=== PATIENT | male | born 1940 ===

== ENCOUNTER 2024-07-12 21:14 | Observation (INO) | payer MEDICARE, OTHER ==
[2024-07-12] MEDS: Sodium Chloride 0.9% 1,000 ML IV ONE (21:21)
[2024-07-12] MEDS ORDERED: Sodium Chloride 0.9% 10 ML Syringe FLUSH PRN (21:32)
[2024-07-12 21:46] LABS: BASOPHILS PERCENT AUTO 0.1 % (0.0-1.0); EOSINOPHILS PERCENT AUTO 0.1 % (1.0-3.0); LYMPHOCYTES PERCENT AUTO 35.5 % (20.5-50.1); MEAN CORPUSCULAR HEMOGLOBIN 30.5 pg (27.0-34.0); MEAN CORPUSCULAR HGB CONC 32.6 g/dL (33.0-35.0); MEAN CORPUSCULAR VOLUME 93.7 fL (80-100); MONOCYTES PERCENT AUTO 4.7 % (2-8); NEUTROPHILS PERCENT AUTO 59.6 % (42.2-75.2); PLATELET COUNT,PLT 137 10^3/uL (150-450); RED BLOOD CELL COUNT 4.59 10^6/uL (4.6-6.2); WHITE BLOOD CELL COUNT,WBC 10.4 10^3/uL (5.0-10.0)
[2024-07-12 21:53] LABS: C-REACTIVE PROTEIN 3.1 ng/dL (<=0.50); MAGNESIUM 1.8 mg/dL (1.8-2.4)
[2024-07-12 21:59] LABS: LACTIC ACID 1.2 mmol/L (0.4-2.0)
[2024-07-12 22:06] LABS: A/G RATIO 1.1; ALBUMIN 3.5 g/dL (3.4-5.0); ANION GAP 11.9 mEq/L (7-13); BILIRUBIN TOTAL 1.6 mg/dL (0.2-1.0); BUN/CREATININE RATIO 20.8 (No establ ref range); CREATININE 1.3 mg/dL (0.70-1.30); EST CRCL DRUG DOSING (CG) 49.72 mL/min; POTASSIUM,K 3.9 mmol/L (3.5-5.1); PROTEIN TOTAL,TP 6.7 g/dL (6.4-8.2)
[2024-07-12 22:21] LABS: PROTHROMBIN TIME 10.9 SEC (9.0-12.0); PTT,PARTIAL THROMBOPLSTIN TIME 24.5 SEC (22.0-34.0)
[2024-07-12 22:23] LABS: APPEARANCE,URINE CLEAR (CLEAR); BILIRUBIN,URINE NEGATIVE (NEGATIVE); COLOR,URINE YELLOW (YELLOW); GLUCOSE,URINE NEGATIVE (NEGATIVE); KETONES,URINE TRACE (NEGATIVE); LEUKOCYTE ESTERASE,URINE NEGATIVE (NEGATIVE); NITRITE,URINE NEGATIVE (NEGATIVE); OCCULT BLOOD,URINE MODERATE (NEGATIVE); PH,URINE 5.5 (5.0-9.0); PROTEIN,URINE 30 (NEGATIVE); UROBILINOGEN,URINE 0.2 mg/dL (0.2-1.0)
[2024-07-12 22:31] LABS: BACTERIA,URINE FEW /HPF (0-FEW/HPF); EPITHELIAL CELLS,URINE FEW /HPF (NOT SEEN); MUCUS,URINE MANY /LPF (NOT SEEN); WBC,URINE 0-5 /HPF (0-5/HPF)
[2024-07-12] MEDS: Albuterol/Ipratropium 3.0-0.5 MG/3 ML Neb Soln NEB ONE (23:27)
[2024-07-13] MEDS: cefTRIAXone 1 GM Vial IVPUSH ONE (00:13)
[2024-07-13] MEDS: methylPREDNISolone Sodium Succinate 40 MG/1 ML SDV IVPUSH ONE (00:13)
[2024-07-13] MEDS: Azithromycin 500 MG in Sodium Chloride 0.9% 250 ML IV ONE (00:14)
[2024-07-13] MEDS: Iopamidol 755 Mg/ML 100 ML Bottle IVPUSH ONE (10:43)
[2024-07-13] MEDS ORDERED: Albuterol 0.083% 2.5 MG/3 ML Neb Soln NEB PRN (15:17)
[2024-07-13] MEDS ORDERED: Acetaminophen 325 MG Tab PO PRN (15:17)
[2024-07-13] MEDS ORDERED: Fluticasone NASAL Spray 16 GM Bottle NAS PRN (15:22)
[2024-07-13] MEDS: Aspirin 81 MG Tab.EC PO SCH (15:53)
[2024-07-13] MEDS: Tamsulosin 0.4 MG Cap.ER PO SCH (15:53)
[2024-07-13] MEDS: Losartan 50 MG Tab PO SCH (15:53)
[2024-07-13] MEDS: Pravastatin 20 MG Tab PO SCH (15:53)
[2024-07-13] MEDS: Finasteride 5 MG Tab PO SCH (15:54)
[2024-07-13] MEDS: Metoprolol Tartrate 50 MG Tab PO SCH (20:42)
[2024-07-13] MEDS: Heparin Sodium 5,000 Units/ML Vial SUBCUT SCH (21:39)
[2024-07-14 06:22] LABS: BASOPHILS PERCENT AUTO 0.1 % (0.0-1.0); EOSINOPHILS PERCENT AUTO 0.1 % (1.0-3.0); HEMATOCRIT 42.7 % (40.0-54.0); HEMOGLOBIN 13.5 g/dL (14.0-18.0); LYMPHOCYTES PERCENT AUTO 46.1 % (20.5-50.1); MEAN CORPUSCULAR HGB CONC 31.6 g/dL (33.0-35.0); MEAN CORPUSCULAR VOLUME 94.9 fL (80-100); MONOCYTES PERCENT AUTO 5.8 % (2-8); NEUTROPHILS PERCENT AUTO 47.9 % (42.2-75.2); PLATELET COUNT,PLT 147 10^3/uL (150-450); WHITE BLOOD CELL COUNT,WBC 18.9 10^3/uL (5.0-10.0)
[2024-07-14 06:36] LABS: ANION GAP 8.6 mEq/L (7-13); CALCIUM 9.3 mg/dL (8.5-10.1); EST CRCL DRUG DOSING (CG) 65.08 mL/min; POTASSIUM,K 4.6 mmol/L (3.5-5.1)
[2024-07-14] MEDS: Loratadine 10 MG Tab PO SCH (09:42)
[2024-07-14] MEDS: cefTRIAXone 2 GM Vial IVPUSH SCH (13:52)
[2024-07-14] MEDS: Azithromycin 500 MG in Sodium Chloride 0.9% 250 ML IV SCH (13:53)
[2024-07-15 06:35] LABS: BASOPHILS PERCENT AUTO 0.1 % (0.0-1.0); EOSINOPHILS PERCENT AUTO 0.4 % (1.0-3.0); HEMATOCRIT 42.9 % (40.0-54.0); HEMOGLOBIN 13.4 g/dL (14.0-18.0); LYMPHOCYTES PERCENT AUTO 50.8 % (20.5-50.1); MEAN CORPUSCULAR HEMOGLOBIN 29.8 pg (27.0-34.0); MEAN CORPUSCULAR HGB CONC 31.2 g/dL (33.0-35.0); MEAN CORPUSCULAR VOLUME 95.5 fL (80-100); MONOCYTES PERCENT AUTO 5.1 % (2-8); NEUTROPHILS PERCENT AUTO 43.6 % (42.2-75.2); PLATELET COUNT,PLT 153 10^3/uL (150-450); RED BLOOD CELL COUNT 4.49 10^6/uL (4.6-6.2); WHITE BLOOD CELL COUNT,WBC 13.4 10^3/uL (5.0-10.0)
== END 2024-07-15 10:50 | disposition home or self-care (01) ==
LOC: DL.ED 21:14 → DL.MS 07-13 13:19
PROVIDERS: ADMIT Internal Medicine; ATTEND Internal Medicine
DX: J15.8 Pneumonia due to other specified bacteria (principal); J96.01 Acute respiratory failure with hypoxia; J44.9 Chronic obstructive pulmonary disease, unspecified; I10 Essential (primary) hypertension; E78.00 Pure hypercholesterolemia, unspecified; Z87.891 Personal history of nicotine dependence; Z79.899 Other long term (current) drug therapy; Z88.7 Allergy status to serum and vaccine
CPT/HCPCS: 36415; 71045; 71275; 80048; 80053; 81001; 83605; 83735; 83880; 84484; 85025; 85610; 85730; 86140; 87040; 87070; 87205; 87428; 93005; 93010; 96361; 96365; 96372; 96375; 96376; 99223; 99233; 99239; 99284; 99285; A9270; G0378; J0456; J0696; J1644; J2919; J7030; J7050; Q9967